=== PATIENT | male | born 1960 | race Caucasian/White ===

== ENCOUNTER 2018-10-17 11:58 | Emergency (ER) | payer MEDICAID ==
[2018-10-17] MEDS ORDERED: Aspirin 81 MG Tab.Chew PO ONE (12:20)
--- NOTE | 2018-10-17 12:23 | EDM.PDOC ---
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 No shortness of breath no nausea or vomiting, at this time he feels most of the chest pressure has resolved, he has no cardiac history no family history of heart disease and he does not use tobacco products Chest Pain Score (Numeric/FACES): 2 - Related Data Allergies Allergy/AdvReac Type Severity Reaction Status Date / Time codeine Allergy Cannot Verified 10/17/18 12:20 Remember Home Meds: Home Meds Furosemide [Lasix] 40 mg PO DAILY 01/08/14 [History] Methadone HCl 148 ml PO DAILY 01/08/14 [History] Past Medical History Cardiovascular History: Reports: Hypertension Social & Family History - Tobacco Use Smoking Status *Q: Never Smoker - Recreational Drug Use Recreational Drug Use: Yes Recreational 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 Denies: Dyspnea on Exertion GI/Abdominal: Reports: No Symptoms : Reports: No Symptoms Musculoskeletal: Reports: No Symptoms Skin: Reports: No Symptoms Neurological: Reports: No Symptoms ED EXAM, GENERAL - Physical Exam Exam: See Below Exam Limited By: No Limitations General Appearance: Alert, WD/WN, No Apparent Distress Eye Exam: Bilateral Eye: Normal Inspection Throat/Mouth: Normal Inspection, Normal Lips, Normal Teeth, Normal Gums, Normal Oropharynx, Normal Voice, No Airway Compromise Head: Atraumatic, Normocephalic Neck: Normal Inspection, Supple, Non-Tender, Full Range of Motion Respiratory/Chest: No Respiratory Distress, Lungs Clear, Normal Breath Sounds, No Accessory Muscle Use, Chest Non-Tender Cardiovascular: Regular Rate, Rhythm, No Murmur GI/Abdominal: Soft, Non-Tender Extremities: Non-Tender, No Pedal Edema Course - Vital Signs Last Recorded V/S: Last Vital Signs Temp 94.9 F L 10/17/18 12:18 Pulse 71 10/17/18 14:54 Resp 12 10/17/18 14:54 BP 115/64 10/17/18 14:54 Pulse Ox 95 10/17/18 14:54 - Orders/Labs/Meds Orders: Active Orders 24 hr Category Date Time Status Cardiac Monitoring [RC] .As Directed Care 10/17/18 12:20 Active EKG Documentation Completion [RC] ASDIRECTED Care 10/17/18 12:20 Active EKG 12 Lead [EK] Stat Ther 10/17/18 12:20 Ordered Labs: Laboratory Tests 10/17/18 10/17/18 10/17/18 Range/Units 12:25 12:25 13:34 WBC 6.7 (4.5-11.0) K/uL RBC 4.57 (4.30-5.90) M/uL Hgb 12.9 (12.0-15.0) g/dL Hct 40.5 (40.0-54.0) % MCV 89 (80-98) fL MCH 28 (27-31) pg MCHC 32 (32-36) % Plt Count 201 (150-400) K/uL Neut % (Auto) 78 H (36-66) % Lymph % (Auto) 14 L (24-44) % [place] % (Auto) 7 H (2-6) % Eos % (Auto) 1 L (2-4) % Baso % (Auto) 0 (0-1) % Sodium 140 (140-148) mmol/L Potassium 4.0 (3.6-5.2) mmol/L Chloride 102 (100-108) mmol/L Carbon Dioxide 31 (21-32) mmol/L Anion Gap 6.9 (5.0-14.0) mmol/L BUN 16 (7-18) mg/dL Creatinine 1.0 (0.8-1.3) mg/dL Est Cr Clr Drug Dosing TNP Estimated GFR (MDRD) > 60 (>60) Glucose 129 H (74-106) mg/dL Calcium 9.4 (8.5-10.1) mg/dL Total Bilirubin 0.4 (0.2-1.0) mg/dL AST 25 (15-37) U/L ALT 35 (12-78) U/L Alkaline Phosphatase 90 (46-116) U/L CK-MB (CK-2) 1.9 (0-3.6) mg/mL Troponin I < 0.017 (0.000-0.056) ng/mL Total Protein 7.7 (6.4-8.2) g/dL Albumin 3.4 (3.4-5.0) g/dL Globulin 4.3 H (2.3-3.5) g/dL Albumin/Globulin Ratio 0.8 L (1.2-2.2) Urine Color Yellow Urine Appearance Clear Urine pH 6.0 (4.5-8.0) Ur Specific [place] 1.015 (1.008-1.030) Urine Protein Negative (NEGATIVE) mg/dL Urine Glucose (UA) Normal (NEGATIVE) mg/dL Urine Ketones Negative (NEGATIVE) mg/dL Urine Occult Blood Negative (NEGATIVE) Urine Nitrite Negative (NEGAITVE) Urine Bilirubin Negative (NEGATIVE) Urine Urobilinogen Normal (NORMAL) mg/dL Ur Leukocyte Esterase Negative (NEGATIVE) Urine RBC Not seen (0-5) Urine WBC 0-5 (0-5) Ur Epithelial Cells Few Amorphous Sediment Many Urine Bacteria Not seen Urine Mucus Not seen Urine Opiates Screen (NEGATIVE) Ur Oxycodone Screen (NEGATIVE) Urine Methadone Screen (NEGATIVE) Ur Propoxyphene Screen (NEGATIVE) Ur Barbiturates Screen (NEGATIVE) Ur Tricyclics Screen (NEGATIVE) Ur Phencyclidine Scrn (NEGATIVE) Ur Amphetamine Screen (NEGATIVE) U Methamphetamines Scrn (NEGATIVE) Urine MDMA Screen (NEGATIVE) U Benzodiazepines Scrn (NEGATIVE) U Cocaine Metab Screen (NEGATIVE) U Marijuana (THC) Screen (NEGATIVE) 10/17/18 10/17/18 Range/Units 13:34 15:15 WBC (4.5-11.0) K/uL RBC (4.30-5.90) M/uL Hgb (12.0-15.0) g/dL Hct (40.0-54.0) % MCV (80-98) fL MCH (27-31) pg MCHC (32-36) % Plt Count (150-400) K/uL Neut % (Auto) (36-66) % Lymph % (Auto) (24-44) % [place] % (Auto) (2-6) % Eos % (Auto) (2-4) % Baso % (Auto) (0-1) % Sodium (140-148) mmol/L Potassium (3.6-5.2) mmol/L Chloride (100-108) mmol/L Carbon Dioxide (21-32) mmol/L Anion Gap (5.0-14.0) mmol/L BUN (7-18) mg/dL Creatinine (0.8-1.3) mg/dL Est Cr Clr Drug Dosing Estimated GFR (MDRD) (>60) Glucose (74-106) mg/dL Calcium (8.5-10.1) mg/dL Total Bilirubin (0.2-1.0) mg/dL AST (15-37) U/L ALT (12-78) U/L Alkaline Phosphatase (46-116) U/L CK-MB (CK-2) (0-3.6) mg/mL Troponin I < 0.017 (0.000-0.056) ng/mL Total Protein (6.4-8.2) g/dL Albumin (3.4-5.0) g/dL Globulin (2.3-3.5) g/dL Albumin/Globulin Ratio (1.2-2.2) Urine Color Urine Appearance Urine pH (4.5-8.0) Ur Specific [place] (1.008-1.030) Urine Protein (NEGATIVE) mg/dL Urine Glucose (UA) (NEGATIVE) mg/dL Urine Ketones (NEGATIVE) mg/dL Urine Occult Blood (NEGATIVE) Urine Nitrite (NEGAITVE) Urine Bilirubin (NEGATIVE) Urine Urobilinogen (NORMAL) mg/dL Ur Leukocyte Esterase (NEGATIVE) Urine RBC (0-5) Urine WBC (0-5) Ur Epithelial Cells Amorphous Sediment Urine Bacteria Urine Mucus Urine Opiates Screen Negative (NEGATIVE) Ur Oxycodone Screen Negative (NEGATIVE) Urine Methadone Screen Presumptive positive H (NEGATIVE) Ur Propoxyphene Screen Negative (NEGATIVE) Ur Barbiturates Screen Negative (NEGATIVE) Ur Tricyclics Screen Negative (NEGATIVE) Ur Phencyclidine Scrn Negative (NEGATIVE) Ur Amphetamine Screen Negative (NEGATIVE) U Methamphetamines Scrn Negative (NEGATIVE) Urine MDMA Screen Negative (NEGATIVE) U Benzodiazepines Scrn Negative (NEGATIVE) U Cocaine Metab Screen Negative (NEGATIVE) U Marijuana (THC) Screen Negative (NEGATIVE) Meds: Medications Discontinued Medications Generic Name Dose Route Start Last Admin Trade Name Jesus PRN Reason Stop Dose Admin Aspirin 324 mg 10/17/18 12:20 10/17/18 12:30 Aspirin PO 10/17/18 12:21 324 mg ONETIME ONE Administration - Re-Assessments/Exams Free Text/Narrative Re-Assessment/Exam: 10/17/18 13:50 heart score is 4 Departure - Departure Time of Disposition: 16:06 Disposition: Home, Self-Care 01 Condition: Fair Clinical Impression: Atypical chest pain Referrals: Roman Rodarte Sr, MD [Primary Care Provider] - Forms: ED Department Discharge Additional Instructions: Please follow-up with your primary care this afternoon for further evaluation, call return to the emergency department worsening of symptoms - My Orders Last 24 Hours: My Active Orders 10/17/18 12:20 Cardiac Monitoring [RC] .As Directed EKG Documentation Completion [RC] ASDIRECTED EKG 12 Lead [EK] Stat - Assessment/Plan Last 24 Hours: My Active Orders 10/17/18 12:20 Cardiac Monitoring [RC] .As Directed EKG Documentation Completion [RC] ASDIRECTED EKG 12 Lead [EK] Stat Plan: Assessment Acuity = acute Site and laterality = atypical chest pain Etiology = unclear etiology Manifestations = none Location of injury = Home Lab values = CBC, CMP troponin negative 2 chest x-ray no acute process EKG demonstrates a sinus rhythm no ST changes or depression appreciated Plan I did review lab work chest x-ray EKG results with him he remained chest pain- free while in the emergency department he'll follow-up with his primary care this afternoon This note was dictated using [employer] voice recognition software please call with any questions on syntax or grammar.
--- NOTE | 2018-10-17 13:18 | CRLCR ---
INDICATION: chest pain CHEST, PA AND LATERAL Upright PA and lateral radiographs of the chest were performed. Comparison: No previous studies are currently available for comparison. The lungs appear clear and there are no pleural effusions. Heart size and pulmonary vasculature appear normal. Visualized bones show no acute findings. IMPRESSION: No acute intrathoracic abnormality identified. LIZETH AGRAWAL MD [facility] Dictated by: Barney Agrawal MD @ 10/17/2018 13:17:01 (Electronically Signed)
== END 2018-10-17 16:11 | disposition home or self-care (01) ==
LOC: JP.ED 11:58
DX: R07.89 Other chest pain (principal); I10 Essential (primary) hypertension; Z88.5 Allergy status to narcotic agent; Z79.899 Other long term (current) drug therapy
CPT/HCPCS: 36415; 71046; 80053; 80305; 81001; 82553; 84484; 85025; 93005; 99285; A9270

== ENCOUNTER 2019-04-02 13:17 | Emergency (ER) | payer MEDICAID ==
[2019-04-02] MEDS ORDERED: Aspirin 81 MG Tab.Chew PO ONE (13:32)
[2019-04-02] MEDS ORDERED: Sodium Chloride 0.9% 10 ML Syringe FLUSH PRN (13:32)
[2019-04-02] MEDS ORDERED: Morphine 4 MG/ML Syringe IVPUSH PRN (13:32)
--- NOTE | 2019-04-02 13:35 | EDM.PDOC ---
ED HPI GENERAL MEDICAL PROBLEM - General Chief Complaint: Chest Pain Stated Complaint: CHEST PAIN Time Seen by Provider: 04/02/19 13:33 Source of Information: Reports: Patient, Old Records, RN Notes Reviewed History Limitations: Reports: No Limitations - History of Present Illness INITIAL COMMENTS - FREE TEXT/NARRATIVE: 58-year-old gentleman presents emergency department today complaint of chest pain, he has a history of atypical chest pain in the past history of heroin use as well as being in the methadone program he states the chest pain started 5 minutes prior to arrival he is diaphoretic and short of breath no nausea Left Chest Pain Score (Numeric/FACES): 5 - Related Data Allergies Allergy/AdvReac Type Severity Reaction Status Date / Time codeine Allergy Cannot Verified 04/02/19 13:24 Remember Home Meds: Home Meds Furosemide [Lasix] 40 mg PO ASDIRECTED 01/08/14 [History] Methadone HCl 150 mg PO DAILY 01/08/14 [History] Azithromycin [Zithromax] 250 mg PO DAILY #6 tab 04/02/19 [Rx] Past Medical History Cardiovascular History: Reports: Hypertension Other Cardiovascular History: on lasix Psychiatric History: Reports: Addiction, Depression - Infectious Disease History Infectious Disease History: Reports: Hepatitis B Social & Family History - Tobacco Use Smoking Status *Q: Never Smoker - Recreational Drug Use Recreational Drug Use: Yes Recreational Drug Type: Reports: Cocaine Other Recreational Drug Type: hx of. reports 15 years clean. ED ROS GENERAL - Review of Systems Review Of Systems: See Below Constitutional: Reports: Diaphoresis HEENT: Reports: No Symptoms Respiratory: Reports: Shortness of Breath Cardiovascular: Reports: Chest Pain GI/Abdominal: Denies: Nausea : Reports: No Symptoms ED EXAM, GENERAL - Physical Exam Exam: See Below Exam Limited By: No Limitations General Appearance: Alert, Moderate Distress Neck: Normal Inspection, Supple, Non-Tender, Full Range of Motion Respiratory/Chest: No Respiratory Distress, Lungs Clear, Normal Breath Sounds, No Accessory Muscle Use, Chest Non-Tender Cardiovascular: Regular Rate, Rhythm, No Murmur GI/Abdominal: Soft, Non-Tender Course - Vital Signs Last Recorded V/S: Last Vital Signs Temp 98.4 F 04/02/19 13:22 Pulse 80 04/02/19 14:02 Resp 14 04/02/19 14:02 BP 157/76 H 04/02/19 14:02 Pulse Ox 90 L 04/02/19 14:02 - Orders/Labs/Meds Orders: Active Orders 24 hr Category Date Time Status Cardiac Monitoring [RC] .As Directed Care 04/02/19 13:32 Active EKG Documentation Completion [RC] ASDIRECTED Care 04/02/19 13:33 Active Peripheral IV Care [RC] . DIRECTED Care 04/02/19 13:33 Active Morphine Med 04/02/19 13:32 Active 4 mg IVPUSH Q10M PRN Nitroglycerin [Nitrostat] Med 04/02/19 13:32 Active 0.4 mg SL Q5M PRN Sodium Chloride 0.9% [Saline Flush] Med 04/02/19 13:32 Active 10 ml FLUSH ASDIRECTED PRN Peripheral IV Insertion Adult [OM.PC] Stat Oth 04/02/19 13:32 Ordered Saline Lock Insert [OM.PC] Stat Oth 04/02/19 13:32 Ordered EKG 12 Lead [EK] Stat Ther 04/02/19 13:33 Ordered Medication Orders Morphine Sulfate (Morphine) 4 mg IVPUSH Q10M PRN PRN Reason: Chest Pain Stop: 04/03/19 13:33 Nitroglycerin (Nitrostat) 0.4 mg SL Q5M PRN PRN Reason: Chest Pain Stop: 04/03/19 13:33 Last Admin: 04/02/19 13:46 Dose: 0.4 mg Admin: 04/02/19 13:39 Dose: 0.4 mg Sodium Chloride (Saline Flush) 10 ml FLUSH ASDIRECTED PRN PRN Reason: Keep Vein Open Last Admin: 04/02/19 13:40 Dose: 10 ml Labs: Laboratory Tests 04/02/19 04/02/19 Range/Units 13:32 13:37 WBC 13.9 H (4.5-11.0) K/uL RBC 4.78 (4.30-5.90) M/uL Hgb 13.5 (12.0-15.0) g/dL Hct 42.1 (40.0-54.0) % MCV 88 (80-98) fL MCH 28 (27-31) pg MCHC 32 (32-36) % Plt Count 229 (150-400) K/uL Neut % (Auto) 82 H (36-66) % Lymph % (Auto) 9 L (24-44) % [place] % (Auto) 5 (2-6) % Eos % (Auto) 4 (2-4) % Baso % (Auto) 0 (0-1) % Sodium 139 L (140-148) mmol/L Potassium 4.3 (3.6-5.2) mmol/L Chloride 102 (100-108) mmol/L Carbon Dioxide 31 (21-32) mmol/L Anion Gap 10.3 (5.0-14.0) mmol/L BUN 13 (7-18) mg/dL Creatinine 0.9 (0.8-1.3) mg/dL Est Cr Clr Drug Dosing 95.80 mL/min Estimated GFR (MDRD) > 60 (>60) Glucose 88 (74-106) mg/dL Calcium 9.2 (8.5-10.1) mg/dL Total Bilirubin 0.5 (0.2-1.0) mg/dL AST 17 (15-37) U/L ALT 23 (12-78) U/L Alkaline Phosphatase 93 (46-116) U/L CK-MB (CK-2) 0.9 (0-3.6) mg/mL Troponin I < 0.017 (0.000-0.056) ng/mL Total Protein 7.8 (6.4-8.2) g/dL Albumin 3.3 L (3.4-5.0) g/dL Globulin 4.5 H (2.3-3.5) g/dL Albumin/Globulin Ratio 0.7 L (1.2-2.2) Meds: Medications Generic Name Dose Route Start Last Admin Trade Name Freq PRN Reason Stop Dose Admin Morphine Sulfate 4 mg 04/02/19 13:32 Morphine IVPUSH 04/03/19 13:33 Q10M PRN Chest Pain Nitroglycerin 0.4 mg 04/02/19 13:32 04/02/19 13:46 Nitrostat SL 04/03/19 13:33 0.4 mg Q5M PRN Administration Chest Pain Sodium Chloride 10 ml 04/02/19 13:32 04/02/19 13:40 Saline Flush FLUSH 10 ml ASDIRECTED PRN Administration Keep Vein Open Discontinued Medications Generic Name Dose Route Start Last Admin Trade Name Freq PRN Reason Stop Dose Admin Aspirin 324 mg 04/02/19 13:32 04/02/19 13:39 Aspirin PO 04/02/19 13:33 324 mg ONETIME ONE Administration Ceftriaxone Sodium 1 gm/ 0 gm 04/02/19 14:58 Lidocaine HCl 2.1 ml IM 04/02/19 14:59 ONETIME ONE Departure - Departure Time of Disposition: 15:07 Disposition: Home, Self-Care 01 Condition: Fair Clinical Impression: Pneumonia Qualifiers: Pneumonia type: due to unspecified organism Laterality: left Lung location: lower lobe of lung Qualified Code(s): J18.1 - Lobar pneumonia, unspecified organism Prescriptions: Azithromycin [Zithromax] 250 mg PO DAILY #6 tab Referrals: PCP,None [Primary Care Provider] - Forms: ED Department Discharge Additional Instructions: Take full course of antibiotics, use medications have been faxed to [facility], please follow-up with your primary care provider in the next 1-2 days for reevaluation and be set up for a stress test a outpatient basis - My Orders Last 24 Hours: My Active Orders 04/02/19 13:32 Cardiac Monitoring [RC] .As Directed Morphine 4 mg IVPUSH Q10M PRN Nitroglycerin [Nitrostat] 0.4 mg SL Q5M PRN Sodium Chloride 0.9% [Saline Flush] 10 ml FLUSH ASDIRECTED PRN Peripheral IV Insertion Adult [OM.PC] Stat Saline Lock Insert [OM.PC] Stat 04/02/19 13:33 EKG Documentation Completion [RC] ASDIRECTED Peripheral IV Care [RC] . DIRECTED EKG 12 Lead [EK] Stat - Assessment/Plan Last 24 Hours: My Active Orders 04/02/19 13:32 Cardiac Monitoring [RC] .As Directed Morphine 4 mg IVPUSH Q10M PRN Nitroglycerin [Nitrostat] 0.4 mg SL Q5M PRN Sodium Chloride 0.9% [Saline Flush] 10 ml FLUSH ASDIRECTED PRN Peripheral IV Insertion Adult [OM.PC] Stat Saline Lock Insert [OM.PC] Stat 04/02/19 13:33 EKG Documentation Completion [RC] ASDIRECTED Peripheral IV Care [RC] . DIRECTED EKG 12 Lead [EK] Stat Plan: Assessment Acuity = acute Site and laterality = left perihilar pneumonia Etiology = probable bacterial cause] Manifestations = [chest pain Location of injury = Home Lab values = WBC elevated 13.9 consistent leukocytosis, CMP and CK-MB, troponin all negative chest x-ray shows a perihilar pneumonia on the left side Plan Called discussed case with his primary care provider who agreed to come and evaluate the patient in the hospital for admission however patient declined therefore he was given 1 g Rocephin followed by prescription for a azithromycin after discussion with his primary care provider he has been treated with both Keflex and ciprofloxacin without any relief. He will follow up with his primary care provider in the in the next 1-2 days for reevaluation and get set up for a stress test as an outpatient This note was dictated using [employer] voice recognition software please call with any questions on syntax or grammar.
[2019-04-02] MEDS: Nitroglycerin 0.4 MG Tab.SL SL PRN ×2 (13:39→13:46)
--- NOTE | 2019-04-02 14:35 | CR ---
CHEST: Portable 04/02/2019 at 1:56 PM CLINICAL HISTORY:Chest pain COMPARISON:October 25, 2018 FINDINGS: Heart is enlarged. Pulmonary vascular appears cephalized. This may be positional. There is patchy left perihilar density which is likely pneumonic infiltrate. Impression: Left perihilar pneumonic infiltrate Cardiomegaly with vascular cephalization
[2019-04-02] MEDS ORDERED: cefTRIAXone 1 GM, Lidocaine 1% 2.1 ML IM ONE ×2 (14:58)
== END 2019-04-02 16:12 | disposition home or self-care (01) ==
LOC: JP.ED 13:17
DX: J18.1 Lobar pneumonia, unspecified organism (principal); I10 Essential (primary) hypertension; Z88.5 Allergy status to narcotic agent; Z79.899 Other long term (current) drug therapy
CPT/HCPCS: 36415; 71045; 71045-26; 80053; 82553; 84484; 85025; 93005; 96372; 99285-25; A9270-GY; J0696; J2001

== ENCOUNTER 2019-04-19 15:25 | Emergency (ER) | payer MEDICAID ==
[2019-04-19] MEDS ORDERED: Proparacaine 0.5% Ophth Soln 15 ML Bottle EYELF ONE (16:09)
--- NOTE | 2019-04-19 16:10 | EDM.PDOC ---
ED HPI GENERAL MEDICAL PROBLEM - General Chief Complaint: Eye Problems Stated Complaint: CUT/SCRATCHED LEFT EYE Time Seen by Provider: 04/19/19 16:05 Source of Information: Reports: Patient History Limitations: Reports: No Limitations - History of Present Illness INITIAL COMMENTS - FREE TEXT/NARRATIVE: 58-year-old male scratch the lower aspect of his left eye within the last couple hours with a sharp edge of his glasses. He has bleeding and slight irritation on the lower aspect of the left eye below the cornea but before the lid margin. No other complaints. Onset: Sudden Duration: Hour(s): (Within the last 2 hours) Location: Reports: Other (Left eye) Associated Symptoms: Reports: No Other Symptoms Left Eye Pain Score (Numeric/FACES): 2 - Related Data Allergies Allergy/AdvReac Type Severity Reaction Status Date / Time codeine Allergy Cannot Verified 04/19/19 15:40 Remember Home Meds: Home Meds Furosemide [Lasix] 40 mg PO DAILY 01/08/14 [History] Methadone HCl 150 mg PO DAILY 01/08/14 [History] Crisaborole [Eucrisa] 1 appful TOP BID 04/11/19 [History] Sertraline [Zoloft] 1 tab PO DAILY 04/11/19 [History] Past Medical History HEENT History: Reports: Impaired Vision Cardiovascular History: Reports: Hypertension Other Cardiovascular History: on lasix Psychiatric History: Reports: Addiction, Depression Other Psychiatric History: past drug addiction past 13 years - Infectious Disease History Infectious Disease History: Reports: Measles Social & Family History - Tobacco Use Smoking Status *Q: Never Smoker Second Hand Smoke Exposure: No - Caffeine Use Caffeine Use: Reports: Coffee - Recreational Drug Use Recreational Drug Use: No ED ROS GENERAL - Review of Systems Review Of Systems: See Below Constitutional: Denies: Fever, Chills Respiratory: Denies: Shortness of Breath Cardiovascular: Denies: Chest Pain GI/Abdominal: Denies: Nausea, Vomiting Skin: Reports: No Symptoms Neurological: Denies: Headache ED EXAM GENERAL W FULL EYE - Physical Exam Exam: See Below Exam Limited By: No Limitations General Appearance: Alert, No Apparent Distress Eye Exam: Left Eye: Bleeding (Patient has a contained hemorrhage on the conjunctiva and sclera of the left lower eye laterally) Eyelids: Bilateral: Normal Appearance Conjunctiva & Sclera: Left: Subconjuctival Hemorrhage Cornea Exam: Left: Normal Appearance (Fluoroscopic exam of the cornea was normal ) Course - Vital Signs Last Recorded V/S: Last Vital Signs Temp 97.0 F 04/19/19 15:56 Pulse 60 04/19/19 15:56 Resp 16 04/19/19 15:56 BP 95/63 04/19/19 15:56 Pulse Ox 95 04/19/19 15:56 - Orders/Labs/Meds Meds: Medications Discontinued Medications Generic Name Dose Route Start Last Admin Trade Name Jesus PRN Reason Stop Dose Admin Proparacaine HCl 1 ml 04/19/19 16:09 04/19/19 16:13 Proparacaine 0.5% Ophth Soln EYELF 04/19/19 16:10 1 ml ONETIME ONE Administration - Re-Assessments/Exams Free Text/Narrative Re-Assessment/Exam: 04/19/19 16:24 2 drops of proparacaine was placed in the left eye followed by fluoroscopic exam. There was no injury to the cornea. Patient has a conjunctival hematoma which should resolve with time. If he develops any visual symptoms or increased pain or concerns he should see optometry. Departure - Departure Time of Disposition: 16:39 Disposition: Home, Self-Care 01 Condition: Good Clinical Impression: Conjunctival hemorrhage of left eye - Discharge Information Instructions: Subconjunctival Hemorrhage Referrals: Roman Rodarte Sr, MD [Primary Care Provider] - Forms: ED Department Discharge Care Plan Goals: Fix your glasses. Recheck with optometry if concerns of vision change, worsening pain or not healing satisfactorily. Cool compresses to the eye may decrease swelling somewhat quicker.
== END 2019-04-19 16:38 | disposition home or self-care (01) ==
LOC: JP.ED 15:25
DX: H11.32 Conjunctival hemorrhage, left eye (principal); I10 Essential (primary) hypertension; F32.9 Major depressive disorder, single episode, unspecified; Z88.5 Allergy status to narcotic agent; Z79.899 Other long term (current) drug therapy
CPT/HCPCS: 99283; A9270